=== PATIENT | female | born 1955 | race Caucasian/White ===

== ENCOUNTER → 2020-02-28 11:39 | Outpatient (BNVA) | payer OTHER, MEDICARE, SELFPAY | PROVIDERS: Family Provider Nurse Practitioner Family; Visit Provider Nurse Practitioner Family | DX: Z79.899 Other long term (current) drug therapy (principal); K21.9 Gastro-esophageal reflux disease without esophagitis; R53.83 Other fatigue; E78.2 Mixed hyperlipidemia; E55.9 Vitamin D deficiency, unspecified | CPT/HCPCS: 80053; 80061; 81001; 82306; 83036; 84443; 85025 ==

== ENCOUNTER → 2020-08-20 10:07 | Outpatient (BNVA) | payer OTHER, SELFPAY | PROVIDERS: Family Provider Nurse Practitioner Family; Visit Provider Nurse Practitioner Family | DX: R23.8 Other skin changes (principal); I83.90 Asymptomatic varicose veins of unspecified lower extremity; Z79.899 Other long term (current) drug therapy; R79.1 Abnormal coagulation profile | CPT/HCPCS: 80053; 81003; 83735; 85025; 85610; 85730 ==

== ENCOUNTER → 2021-01-07 11:29 | Outpatient (BNVA) | payer OTHER, SELFPAY | PROVIDERS: Family Provider Nurse Practitioner Family; Visit Provider Nurse Practitioner Family | DX: R68.89 Other general symptoms and signs (principal); R21 Rash and other nonspecific skin eruption; Z79.899 Other long term (current) drug therapy; M25.50 Pain in unspecified joint | CPT/HCPCS: 80053; 82550; 84443; 85025; 85651; 86038; 86140; 86431 ==

== ENCOUNTER → 2021-02-25 08:12 | Outpatient (BNVA) | payer OTHER, SELFPAY | PROVIDERS: Family Provider Nurse Practitioner Family; Visit Provider Nurse Practitioner Family | DX: E78.2 Mixed hyperlipidemia (principal); I10 Essential (primary) hypertension | CPT/HCPCS: 80053; 80061; 82550 ==

== ENCOUNTER → 2021-12-04 08:56 | Outpatient (BNVA) | payer MEDICARE, SELFPAY | PROVIDERS: Family Provider Nurse Practitioner Family; PCP Nurse Practitioner Family; Visit Provider Nurse Practitioner | DX: E78.2 Mixed hyperlipidemia (principal); Z79.899 Other long term (current) drug therapy | CPT/HCPCS: 80053; 80061; 84443; 85025 ==

== ENCOUNTER → 2023-04-15 08:59 | Outpatient (BNVA) | payer OTHER, SELFPAY | PROVIDERS: Family Provider Nurse Practitioner Family; PCP Nurse Practitioner; Visit Provider Nurse Practitioner | DX: Z79.899 Other long term (current) drug therapy (principal); E78.2 Mixed hyperlipidemia; E55.9 Vitamin D deficiency, unspecified | CPT/HCPCS: 80053; 80061; 82306; 84443; 85025 ==

== ENCOUNTER → 2023-12-27 08:48 | Outpatient (BNVA) | payer OTHER, SELFPAY | PROVIDERS: Family Provider Nurse Practitioner Family; PCP Nurse Practitioner Family; Visit Provider Nurse Practitioner Family | DX: S61.452A Open bite of left hand, initial encounter (principal); S61.252A Open bite of right middle finger without damage to nail, initial encounter; L08.9 Local infection of the skin and subcutaneous tissue, unspecified; W54.0XXA Bitten by dog, initial encounter; M19.042 Primary osteoarthritis, left hand | CPT/HCPCS: 73130 ==

== ENCOUNTER 2023-12-28 07:41 | Emergency (ER) | payer OTHER, SELFPAY ==
[2023-12-28 07:53] VITALS: BP 180/87; PULSE 94; RESP 18; TEMP 36.8; O2SAT 99; BMI 26.9
--- NOTE | 2023-12-28 08:02 | ED_ITS ---
HPI - Animal Bite General: Chief Complaint: Animal Bite Stated Complaint: dog bite to left index finger Time Seen by Provider: 12/28/23 07:54 Source: patient Mode of arrival: ambulatory Limitations: no limitations History of Present Illness: This patient comes to the emergency department this morning because she states she has had not had much improvement in the swelling and redness around the dog bite that was sustained on Wednesday. She states it was approximately 6-week-old puppy who is she is attempting to bathe. She states the puppy nipped her in her left index finger. She states the puppy is a neighbors puppy and is not immunized but appears to be healthy and playful. Patient was seen yesterday by her primary care clinic and had her tetanus updated. She also was prescribed Augmentin of which she has taken 2 doses. She states that she is concerned because she still has swelling and some mild redness over her index finger and up into her left nondominant hand. He denies any fevers or chills or other symptoms. She is normally in good health. MD complaint: animal bite Animal: dog Description of animal: household pet Mechanism: bite Associated symptoms: Reports no associated symptoms; Deny chills, fever(s) or headache(s) Review of Systems Const: Denies: fever(s) or chills GI: Denies: nausea or vomiting Musc: Reports: extremity pain and extremity swelling Skin/Breast: Reports: erythema Neuro: Denies: headache(s), numbness in extremities or weakness in extremities Florentin/Lymph: Denies: easy bruising or easy bleeding [facility] ED PFSH: Medical History Infected dog bite of hand including fingers Anxiety Essential hypertension Cough Acute bacterial sinusitis Easy bruising Vitamin D deficiency Mixed hyperlipidemia Thickening of wall of gallbladder Gastroesophageal reflux disease Surgical History S/P tubal ligation Social History Smoking and tobacco/nicotine status: never used tobacco/nicotine Physical Exam Narrative: EXAM NARRATIVE: She is alert in no acute distress answers questions appropriately. Const: COMMON NORMALS: no acute distress, average body habitus and patient oriented x3 GENERAL APPEARANCE: cooperative and comfortable HENMT: COMMON NORMALS: normocephalic HEAD & SCALP: normocephalic Eye: COMMON NORMALS: Equal, round and reactive pupils present and EOMs intact bilaterally PUPIL: Yes Equal, round and reactive pupils present Resp: COMMON NORMALS: normal respiratory effort and No use of accessory muscles Cardio: COMMON NORMALS: regular rate and Peripheral pulses 2+ throughout RATE: regular rate PERIPHERAL PULSES: Peripheral pulses 2+ throughout Back/Pelvis: COMMON NORMALS: thoraco-lumbar ROM normal Extremity: COMMON NORMALS: capillary refill normal NARRATIVE EXTREMITY EXAM: Examination with attention to her left hand reveals a small abrasion to the radial side of her left index finger the middle phalanx. She has some swelling over that finger approximately extending into the dorsum of the left hand. She has full extension at that finger but has reduced flexion at the PIP and DIP. She has intact sensation. The redness and swelling does not extend past the metacarpal area of her hand. There is no proximal lymphangitis or lymphadenopathy. She has normal range of motion proximally. There is no swelling or tenseness of the forearm. There is no tenseness of the hand compartment. Neuro: COMMON NORMALS: patient oriented x3, moves all extremities, no focal motor deficits and no sensory deficits noted Skin: TRAUMA: abrasion (Left index finger) Course Vital Signs: Vital signs: Vital Signs Temperature 98.3 F 12/28/23 07:53 Pulse Rate 94 12/28/23 08:03 Respiratory Rate 18 12/28/23 08:03 Blood Pressure 180/87 12/28/23 08:03 Pulse Oximetry 99 12/28/23 08:03 Oxygen Delivery Me thod Room Air 12/28/23 08:03 MDM - Animal Bite Medical Decision Making This patient came to the emergency department because of concerns about nonimprovement of her right index finger and hand. She states she was bitten by a dog on Wednesday. This is a observable family pet and was not provoked she was bathing the dog when the dog became anxious and bit her on the finger. Her tetanus had been previously updated in the clinic yesterday. She had received 2 doses of Augmentin. Her clinical exam revealed localized swelling and stiffness to the left index finger with some swelling and redness extending into the dorsum of the left hand. No evidence of more proximal or other concerning findings. No evidence to suggest compartment syndrome etc. Her clinical exam certainly suggestive of localized cellulitis. Too early to like any determination regarding nonresolution etc. at this point since she has received only 2 doses of antibiotics. She was given a loading dose of Rocephin in the emergency department as well as a 10 mg dose of Decadron. No other treatment indicated at this point. X-rays from her evaluation yesterday were reviewed and were reassuring. The patient is stable to be discharged home. We discussed rabies prophylaxis. And that was offered to her. Because the pet is observable and is healthy and normal is certainly low risk and she stated that she would prefer to wait rather than receive rabies prophylaxis at this time. We discussed return precautions and 24 to 40-hour return to the emergency department if her symptoms or not starting to improve or worsening. Medical Records I reviewed the patient's medical records. X-ray of left hand from 26 December reviewed. No acute findings. No radiology studies performed this visit Discharge Plan Discharge Patient Disposition: Home Clinical Impression: Dog bite, Cellulitis of finger of left hand Condition: Stable Prescriptions: No Action Vitamin A PO DAILY hydrochlorothiazide 25 mg tablet See Rx Instructions .ROUTE .COMPLEX 90 Days Qty: 90 1RF Dose Instruction: Take 1 tablet by mouth once daily Rx Instructions: Take 1 tablet by mouth once daily amoxicillin-pot clavulanate 875-125 mg tablet 1 tab PO BID 14 Days Qty: 28 0RF clotrimazole 1 % solution See Rx Instructions topical BID 14 Days Qty: 30 0RF Rx Instructions: 2 drops in effected ear twice a day for 7 days. clobetasol 0.05 % ointment 1 applic topical BID 14 Days Qty: 45 1RF Rx Instructions: Apply to affected area no more than 2 weeks per month, not for face or skin folds. triamcinolone acetonide 0.1 % ointment 1 applic topical BID Qty: 454 2RF Rx Instructions: apply to affected area no more than 2 weeks per month. not for face hydrocortisone 2.5 % ointment 1 applic topical BID 21 Days Qty: 454 0RF Rx Instructions: Apply to affected area(s) twice a day for 3 weeks. ascorbic acid (vitamin C) 1,000 mg tablet 500 mg PO DAILY 90 Days Qty: 90 3RF cholecalciferol (vitamin D3) 1,250 mcg (50,000 unit) capsule See Rx Instructions .ROUTE .COMPLEX Qty: 12 3RF Dose Instruction: TAKE ONE CAPSULE BY MOUTH ONCE A WEEK Rx Instructions: TAKE ONE CAPSULE BY MOUTH ONCE A WEEK rosuvastatin 20 mg tablet See Rx Instructions .ROUTE .COMPLEX Qty: 90 0RF Dose Instruction: TAKE ONE TABLET BY MOUTH DAILY Rx Instructions: TAKE ONE TABLET BY MOUTH DAILY PT MUST MAKE AN APPOINTMENT FOR ADDITIONAL REFILLS. omeprazole 40 mg capsule,delayed release(DR/EC) See Rx Instructions .ROUTE .COMPLEX Qty: 90 0RF Dose Instruction: TAKE 1 CAPSULE BY MOUTH EVERY DAY Rx Instructions: TAKE 1 CAPSULE BY MOUTH EVERY DAY Discharge Orders: Discharge ED (Routine); Ordered 12/28/23 Ordered By: Uziel Kumar Referrals: TOMY Woodward, CASE MAKING MACHINE OPERATOR [Primary Care Provider] - Discharge Diet: Usual diet Discharge Activity: Increase activity as tolerated Patient Instructions: Opioid Safety, Pain Management Activity Restrictions/Additional Instructions: As we discussed it may take up to 48 hours or more for you to start seeing improvement in the redness and swelling of your left hand and index finger. We gave you an additional dose of antibiotics in the emergency department. We encourage you to take your regular scheduled doses of antibiotics today. Keep the area clean with soap and water and apply a Band-Aid over the abraded area. You may use a [id number] topical antibiotic but do not put other ointments or creams on the area. If you are having worsening symptoms in the next 48 to 72 hours or any concerns whatsoever return to the emergency department for reevaluation. If the puppy starts displaying signs of concern also return to the emergency department for reevaluation and consideration of rabies prophylaxis. Coding Level of Care Code ED Shake Cutter for Maik Chinchilla
[2023-12-28 08:03] VITALS: BP 180/87; PULSE 94; RESP 18; O2SAT 99
[2023-12-28] MEDS: cefTRIAXone 2,000 MG in sodium chloride 0.9% (plus) 50 ML 100 MG IV (08:12)
[2023-12-28] MEDS: dexamethasone 10 mg/mL INJ IVP (08:43)
== END 2023-12-28 09:08 | disposition home or self-care (01) ==
PROVIDERS: Emergency Provider Emergency Medicine; PCP Nurse Practitioner Family
DX: L03.012 Cellulitis of left finger (principal); W54.0XXA Bitten by dog, initial encounter; I10 Essential (primary) hypertension; E78.2 Mixed hyperlipidemia
CPT/HCPCS: 96365; 96375; 99284; J0696; J1100

== ENCOUNTER → 2024-09-20 09:20 | Outpatient (BNVA) | payer BC, SELFPAY | PROVIDERS: PCP Nurse Practitioner Family; Visit Provider Nurse Practitioner Family | DX: E78.2 Mixed hyperlipidemia (principal); E55.9 Vitamin D deficiency, unspecified; Z79.899 Other long term (current) drug therapy; Z12.31 Encounter for screening mammogram for malignant neoplasm of breast; K21.9 Gastro-esophageal reflux disease without esophagitis | CPT/HCPCS: 80053; 80061; 81003; 82306; 83036; 84443; 85025 ==